=== PATIENT | male | born 1980 | race Caucasian/White ===

== ENCOUNTER 2017-10-04 22:35 | Observation (INO) | payer OTHER ==
[~2017-10-04] VITALS: Ht 185.4 cm; Wt 99.8 kg
[~2017-10-04 22:35] MED LIST: NORCO 5-325 TA1 EACH PO
[2017-10-04 22:36] VITALS: BP 164/97
[2017-10-04] MEDS ORDERED: NOHOMEMEDICATIONS (22:41)
[2017-10-04 22:58] LABS: ABSOLUTE EOSINOPHILS 0.2 thou/uL (0.0-0.7); ABSOLUTE MONOCYTES 0.7 thou/uL (0.0-1.2); ABSOLUTE NEUTROPHILS 4.3 thou/uL (1.6-8.1); BASOPHILS 0.6 %; EOSINOPHILS 2.8 %; HEMATOCRIT 41.6 % (42.0-52.0); LYMPHOCYTES 27.4 %; MCH 28.7 pg (26.0-34.0); MCHC 33.6 g/dL (28.0-37.0); MCV 85.4 fL (80.0-100.0); MONOCYTES 9.3 %; MPV 8.9 fl. (7.2-11.1); NUCLEATED RBCS 0 /100WBC; PLATELET COUNT* 178 thou/uL (150-400); POLYS 59.9 %; RBC 4.87 mil/uL (4.50-6.00); WBC 7.2 thou/uL (4.0-11.0)
[2017-10-04 23:04] LABS: CALCIUM 8.5 mg/dL (8.5-10.1); CREATININE 1.3 mg/dL (0.6-1.3); POTASSIUM 3.4 mmol/L (3.5-5.1)
[2017-10-04 23:08] LABS: ALBUMIN 3.6 g/dL (3.4-5.0); TOTAL BILIRUBIN 0.5 mg/dL (<0.1-1.0); TOTAL PROTEIN 6.6 g/dL (6.4-8.2)
[2017-10-05 01:56] LABS: URINE BILIRUBIN NEGATIVE (Negative); URINE BLOOD 2+ (Negative); URINE CLARITY CLEAR; URINE COLOR YELLOW; URINE GLUCOSE-RANDOM NEGATIVE (Negative); URINE KETONES NEGATIVE (Negative); URINE LEUKOCYTES-REFLEX NEGATIVE (Negative); URINE NITRITE-REFLEX NEGATIVE (Negative); URINE PROTEIN NEGATIVE (Negative); URINE UROBILINOGEN 0.2 E.U./dl (0.2-1.0)
[2017-10-05 01:59] VITALS: BP 128/76
[2017-10-05 02:00] VITALS: BP 128/74
[2017-10-05 02:02] LABS: CASTS None Seen /LPF (None Seen); CRYSTALS None Seen /LPF (None Seen); MUCUS 4-6 Moderate strn/LPF (None Seen); SQUAMOUS 0-3 Few /LPF (0-3); URINE RBC 3-10 Few /HPF (0-2); URINE WBC-REFLEX 0-5 Rare /HPF (0-5)
[2017-10-05 07:50] VITALS: BP 119/77
--- NOTE | 2017-10-05 08:04 | NUR ---
PT ADMITED TO UNIT, PT TRANSFERED TO FLOOR AT 0200. ASSESSMENT COMPLETED IN ED, I AGREE WITH ASSESSMENT. IV PATENT, FLUIDS INFUSING. PT ORIENTED TO ROOM. NO REPORTS OF PAIN OR NAUSEA. WILL CONTINUE WITH PLAN OF CARE.
[2017-10-05] MEDS ORDERED: NORCO 7.5-3251 EACH PO (11:04)
[2017-10-05] MEDS ORDERED: FLOMAX0.4 MG PO (11:04)
[2017-10-05 13:13] VITALS: BP 119/77
--- NOTE | 2017-10-05 14:53 | NUR ---
PATIENT A&OX4, ROOM AIR IV LEFT AC, FLUIDS INFUSSING. IV DISCONTINUED, CATHETER FULLY INTACT. UP AD TOM, STEADY GAIT. NO C/O PAIN/N/V. ABLE TO URINATE, STRAINING URINE, NO STONE. PATIENT DISCHARGED, REVIEWED PAPERWORK WITH PATIENT WHILE SPOUSE AT BEDSIDE. VERBALIZES UNDERSTANDING. NO FURTHER QUESTIONS AT THIS TIME. APPROPRAITE AND COOPORATIVE WITH CARE. LEFT UNIT AT 1420 VIA W/C WITH ALL BELONGINGS, NOTHING LEFT BEHIND.
== END 2017-10-05 14:20 | disposition home or self-care (01) ==
LOC: M.ERS 22:35 → M.3W 10-05 00:08 → M.TBA-ER 10-05 00:08 → M.3W 10-05 01:43
PROVIDERS: Emergency Medicine; ADMIT Internal Medicine
DX: N20.2 Calculus of kidney with calculus of ureter (principal); R10.31 Right lower quadrant pain